=== PATIENT | male | born 1955 | race Caucasian/White ===

== ENCOUNTER 2020-06-15 08:50 | Outpatient (CLI) | payer MEDICARE, BC ==
--- NOTE | 2020-06-15 12:02 | CT ---
CT CHEST WITHOUT CONTRAST: Date: 06/15/2020 PROVIDED CLINICAL HISTORY: Personal history of nicotine dependence. COMPARISON: CT dated 06/22/2014. FINDINGS: There is a right hilar mass measuring at least 4.6 x 5.1 cm in greatest transverse dimensions, and at least 5.0 cm in craniocaudal dimension. This is associated with occlusion of the right main bronchus, bronchus intermedius, right upper lobe bronchus, right middle lobe bronchus, and right lower lobe bronchus. There is consolidation involving the right middle lobe. There is consolidation involving the posterio r aspect of the superior segment of the right lower lobe. There is consolidation involving the basila r aspects of the right lower lobe. There are innumerable subcentimeter nodules throughout the right m iddle and right lower lobes. Multifocal nodules are also seen within the caudal aspects of the right upper lobe posteriorly. The left lung appears free of suspicious opacity. Assessment for thoracic lymph node enlargement is limited due to lack of IV contrast material. Vascular calcification including coronary calcium is demonstrated. There is no pleural fluid, pleural thickening, or pneumothorax apparent. The visualized portions of the upper abdomen appear unremarkable. The osseous structures demonstrate no concerning lytic or blastic lesions. IMPRESSION: 1. Lung-RADS Category 4X - Very suspicious. Findings compatible with right hilar malignancy with ass ociated occlusion of the right-sided airway and postobstructive pneumonitis and/or right pulmonary me tastatic disease. CT chest with IV contrast may be useful for further evaluation as indicated. 2. Lung-RADS Category S - Vascular calcification including coronary calcium. CODE T. POS: JAZIEL
== END 2020-06-15 08:51 | disposition home or self-care (01) ==
LOC: BICCT 08:50
PROVIDERS: ATTEND Family Medicine Sports Medicine
DX: Z12.2 Encounter for screening for malignant neoplasm of respiratory organs (principal); F17.210 Nicotine dependence, cigarettes, uncomplicated; I25.10 Atherosclerotic heart disease of native coronary artery without angina pectoris
CPT/HCPCS: G0297

== ENCOUNTER 2020-06-21 11:03 | Outpatient (CLI) | payer MEDICARE, BC ==
[2020-06-22 12:58] LABS: SARS-CoV-2 MS2 Positive; SARS-CoV-2 N Gene Negative; SARS-CoV-2 S Gene Negative; SARS-CoV-2 by NAA Not Detected (NotDetected); SARS-CoV-2 orf1ab Negative
== END 2020-06-21 11:04 | disposition home or self-care (01) ==
LOC: LABBT 11:03
PROVIDERS: ATTEND Internal Medicine Critical Care Medicine
DX: Z20.828 Contact with and (suspected) exposure to other viral communicable diseases (principal)
CPT/HCPCS: 87635; U0003

== ENCOUNTER 2020-06-24 07:54 | Day surgery (SDC) | payer MEDICARE, BC ==
--- NOTE | 2020-06-23 09:43 | HP ---
HISTORY OF PRESENT ILLNESS: Mr. Ross is a gentleman, who is referred for an abnormal chest x-ray and chest CT. He developed a cough this summer. Chest x-ray was nonrevealing. His cough did not improve, so a CT scan was done which showed a right hilar mass. Risks of bleeding, infection, lung collapse, and were explained. Patient is willing to proceed. PAST MEDICAL HISTORY: Remarkable for 1. Peripheral vascular disease. 2. Hypertension. 3. History of a femoral artery stent. 4. Ongoing tobacco use. 5. History of a headache, worked up with an MRI that showed multiple nonspecific abnormalities. FAMILY HISTORY: Negative for lung disease at an early age, positive for diabetes, hypertension, heart disease. REVIEW OF SYSTEMS: Otherwise negative. PHYSICAL EXAMINATION: GENERAL: A very pleasant gentleman, in no distress. VITAL SIGNS: Pulse is 80, respiratory rate is 18, oximetry is 97. HEENT: Pupils are equal. Sclerae anicteric. Extraocular movements are full. I did not palpate any cervical or supraclavicular lymph nodes. I could not palpate any axillary lymph nodes. LUNGS: Remarkable for decreased breath sounds at his right base. HEART: Regular rhythm. S1, S2 are normal. ABDOMEN: Soft and nontender. EXTREMITIES: Without clubbing, cyanosis, or edema. IMAGING: CT shows a 5 x 5 right hilar mass. IMPRESSION: Bronchogenic carcinoma. DISCUSSION: Given the rapid appearance of this mass, this is behaving like small-cell lung cancer. Hopefully, he has endobronchial disease that we can biopsy. He is scheduled for Saturday morning at 10 a.m. for bronchoscopy with sedation. Job ID: [id number]
[2020-06-23 10:53] VITALS: BMI 22.4
[2020-06-24] MEDS ORDERED: Fentanyl 100 MCG/2 ML VIAL ONE ×3 (09:55→12:37)
[2020-06-24] MEDS ORDERED: PROPOFOL 200 MG/20 ML VIAL ONE (10:04)
[2020-06-24] MEDS ORDERED: Ondansetron PF 4 MG/2 ML Vial ONE (10:04)
[2020-06-24] MEDS ORDERED: Rocuronium Bromide 10 MG/ML (10ML VIAL) ONE (10:04)
[2020-06-24] MEDS ORDERED: Succinylcholine 200 MG/10 ml SYRINGE FS ONE (10:04)
[2020-06-24] MEDS ORDERED: Dexamethasone 20 MG/5 ML VIAL ONE (10:04)
[2020-06-24] MEDS ORDERED: Glycopyrrolate 0.2 MG/ML 5 ML SYRINGE ONE (10:04)
[2020-06-24] MEDS ORDERED: Lidocaine 1% PF 5 ML VIAL ONE (10:04)
[2020-06-24] MEDS ORDERED: EPINEPHrine 1 MG/10 ML Abboject SYRINGE ONE (10:04)
[2020-06-24] MEDS ORDERED: Morphine 4 MG/ML VIAL ONE (12:18)
[2020-06-24] MEDS ORDERED: Morphine 2 MG/ML VIAL ONE (12:26)
--- NOTE | 2020-06-26 19:37 | OP ---
DATE OF PROCEDURE: 06/24/2020 PROCEDURE: Bronchoscopy. DESCRIPTION OF PROCEDURE: Mr. Ross was sedated by Anesthesia, which is greatly appreciated. Once he was asleep, bronchoscope was introduced via the endotracheal tube, passed down to his main roberto, which is slightly widened. At the proximal right mainstem bronchus, friable mass was encountered that was bleeding. This was treated topically with epinephrine and the bleeding stopped. Multiple brushings were obtained. The brush was cut off and placed in CytoFix and sent to Pathology. Multiple biopsies were obtained. These were also placed in cytology fixative and sent to Pathology. Multiple washings were obtained. Bleeding had stopped at the completion of the procedure. Scope was withdrawn. He was taken to Recovery and extubated. I met with him afterwards and talked to his . I have explained to him that it is extremely likely that this is an aggressive malignancy, most likely small cell lung cancer. I suppose this could be an atypical presentation for a very aggressive lymphoma. I have never seen squamous cell carcinoma progress this rapidly before, and it is a proximal tumor in a smoker. Hopefully, we will have results of the biopsies by Saturday and we can begin treatment. With regard to his persistent headache, he was given Tylenol No. 3, 100 tablets, take one 2 to 3 times a day and 2 at bedtime. He has been taking a lot of Tylenol and ibuprofen just to get reasonable control of his headaches. He had multiple white matter lesions on his MRI and the interpretation was that it was not typical for malignant process. I plan to have a different radiologist review the MRI in the context of him having a very large aggressive lung mass. It would seem more likely that this would be metastatic lung cancer creating his headache. Job ID: [id number]
--- NOTE | 2020-06-26 20:55 | EKG ---
Test Reason : PREOP Blood Pressure : / mmHG Vent. Rate : 087 BPM Atrial Rate : 087 BPM P-R Int : 124 ms QRS Dur : 092 ms QT Int : 350 ms P-R-T Axes : 021 036 037 degrees QTc Int : 421 ms Normal sinus rhythm Normal ECG No previous ECGs available Confirmed by Richie MISTRY ([id number]) on 06/26/2020 8:55:05 PM Referred By: MARIE Confirmed By:Richie MISTRY
== END 2020-06-24 14:10 | disposition home or self-care (01) ==
LOC: SDC 07:54
PROVIDERS: ATTEND Internal Medicine Critical Care Medicine
PROC: 0BB38ZX Excision of Right Main Bronchus, Via Natural or Artificial Opening Endoscopic, Diagnostic (ICD-10-PCS; principal; 2020-06-24)
PROC: 0BD38ZX Extraction of Right Main Bronchus, Via Natural or Artificial Opening Endoscopic, Diagnostic (ICD-10-PCS; 2020-06-24)
DX: C34.91 Malignant neoplasm of unspecified part of right bronchus or lung (principal); R51.9 Headache, unspecified; I73.9 Peripheral vascular disease, unspecified; I10 Essential (primary) hypertension; E78.5 Hyperlipidemia, unspecified; Z87.891 Personal history of nicotine dependence; Z79.899 Other long term (current) drug therapy; Z95.820 Peripheral vascular angioplasty status with implants and grafts
CPT/HCPCS: 31623; 31625; 88112; 88305; 88313; 88341; 88342; 93005; J2270; 93010; J0171; J1100; J2405; J2704; J3010

== ENCOUNTER 2020-07-05 11:17 | Outpatient (CLI) | payer MEDICARE, BC ==
--- NOTE | 2020-07-05 13:18 | PET ---
PET W CT Skull to Mid Thigh History: Squamous cell carcinoma of lung Comparison: Chest radiograph January 18, 2020. CT chest June 15, 2020 Findings: PET CT performed after the intravenous administration 10.9 mCi F-18 FDG. Large right intrabronchial mass involves the right mainstem bronchus and extends into the right lower lobe, right middle lobe and portions of the right upper lobe bronchi. The hypermetabolic portion of this mass measures up to 6 cm axial image 113 with SUV max 27.0. High-grade peripheral right lower lobe postobstructive pneumonitis is non-FDG avid. No FDG avid mediastinal adenopathy. No supraclavicular adenopathy. No axillary adenopathy. No FDG avid adenopathy below the diaphragm. Adrenal glands are not involved. Bilateral symmetric intracranial uptake. No cervical adenopathy. No FDG avid pulmonary nodule in the left lung. Volume loss of the right lung with rightward mediastin al shift. Mild renal vascular calcifications. Mild aortic calcifications. Mild diverticular disease sigmoid colon without active current inflammation. The appendix is visualiz ed and is normal. The liver, spleen, and mesentery are not involved. No osseous metastatic disease. Impression: Markedly hypermetabolic right endobronchial mass extending predominantly along the right middle lobe and lower lobe with non-FDG avid postobstructive pneumonitis. No mediastinal, supraclavicular, or contralateral hilar adenopathy. No distant metastatic disease.
== END 2020-07-05 11:18 | disposition home or self-care (01) ==
LOC: PET 11:17
PROVIDERS: ATTEND Internal Medicine Hematology & Oncology
DX: C34.90 Malignant neoplasm of unspecified part of unspecified bronchus or lung (principal); R91.8 Other nonspecific abnormal finding of lung field
CPT/HCPCS: 78815; A9552

== ENCOUNTER 2020-07-29 13:49 | Outpatient (CLI) | payer MEDICARE, BC | END 2020-07-29 13:50 | disposition home or self-care (01) | LOC: CTENTCT 13:49 | PROVIDERS: ATTEND Student in an Organized Health Care Education/Training Program | DX: R51.9 Headache, unspecified (principal) | CPT/HCPCS: 70486 ==

== ENCOUNTER 2020-08-05 08:33 | Outpatient (CLI) | payer MEDICARE ==
[2020-08-05 15:35] LABS: Hemoglobin 13.6 g/dL (14.0-18.0); Mean Corpuscular HGB CONC 34.7 G/DL (32.0-36.0); Mean Corpuscular Hemoglobin 29.9 PG (27.0-33.0); Mean Corpuscular Volume 86.2 fl (80.0-100.0); Mean Platelet Volume 11.4 fl (7.4-10.4); Platelet Count 231 10x3/uL (130-400); RBC Distribution Width 12.3 % (11.5-14.5); Red Blood Cell (RBC) Count 4.55 10x6/uL (4.40-5.80); White Blood Cell (WBC) Count 41.9 10x3/uL (4.5-11.0)
[2020-08-05 16:29] LABS: MDiff Complete? YES
[2020-08-05 16:35] LABS: Band 13 % (5-11); Lymphocytes 1 % (21-51); Metamyelocyte 3 % (0-0); Monocytes 2 % (0-10); Neutrophil 81 % (42-75)
[2020-08-05 16:36] LABS: Large Platelets SLIGHT; Reflex for Review?? YES
[2020-08-05 16:37] LABS: Platelet Morphology Comment Appears Adequate
[2020-08-05 16:38] LABS: RBC Morphology Normal
[2020-08-06 02:09] LABS: SARS-CoV-2 MS2 Positive; SARS-CoV-2 N Gene Negative; SARS-CoV-2 S Gene Negative; SARS-CoV-2 by NAA Not Detected (NotDetected); SARS-CoV-2 orf1ab Negative
== END 2020-08-05 08:34 | disposition home or self-care (01) ==
LOC: LABBT 08:33
PROVIDERS: ATTEND Specialist
DX: Z01.818 Encounter for other preprocedural examination (principal); Z20.828 Contact with and (suspected) exposure to other viral communicable diseases; C34.00 Malignant neoplasm of unspecified main bronchus
CPT/HCPCS: 85025; U0003; 80053; 82248; 83615; 84100; 84550; 85060; 87635; 93005; 93010; 99202; G0463

== ENCOUNTER 2020-08-10 06:03 | Day surgery (SDC) | payer BC, MEDICARE ==
--- NOTE | 2020-08-08 08:18 | HP ---
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 Benitez, undergoing chemotherapy, considering possible future surgical resection. He had a CAT scan demonstrating right hilar mass 4.6 x 5.1 cm, occluded right mainstem bronchus. I have been asked to see him regarding placement of MediPort. We will plan low-profile MediPort outpatient, intravenous sedation and local anesthesia. Recent laboratories unremarkable, do not need to repeat them. MEDICATIONS: 1. Atorvastatin. 2. Lisinopril. 3. Dexamethasone. 4. .. 5. Compazine p.r.n. PAST MEDICAL HISTORY: Hypertension, hyperlipidemia, right lung cancer as noted above. SOCIAL HISTORY: Tobacco, one pack per day. Alcohol, none. PAST SURGICAL HISTORY: Noncontributory REVIEW OF SYSTEMS: Ten-point noncontributory. PHYSICAL EXAMINATION: VITAL SIGNS: 166 pounds, blood pressure 118/62, heart rate 111, and temperature 97.1 degrees. LUNGS: Clear to auscultation. CARDIAC: Regular rate and rhythm without murmur or gallop. No wheezing. ABDOMEN: Nontender. No masses. EXTREMITIES: Unremarkable. ASSESSMENT AND PLAN: Right lung cancer. PLAN: MediPort placement outpatient, intravenous sedation, local anesthesia, low-profile. Job ID: [id number]
[2020-08-09 11:01] VITALS: BMI 20.9
[2020-08-10] MEDS ORDERED: Ketorolac Tromethamine 30 MG/ML VIAL ONE (06:15)
[2020-08-10] MEDS ORDERED: Acetaminophen 500 MG TAB ONE (06:15)
[2020-08-10] MEDS ORDERED: Midazolam HCl 2 mg/2 ml Vial ONE (06:36)
[2020-08-10] MEDS ORDERED: Fentanyl 100 MCG/2 ML VIAL ONE (06:36)
[2020-08-10] MEDS ORDERED: Lidocaine 1% w/Epinephrine 1:100K 20 ML VIAL ONE (06:38)
[2020-08-10] MEDS ORDERED: Bupivacaine PF 0.5% 30 ML VIAL ONE (06:38)
[2020-08-10] MEDS ORDERED: Propofol 500 MG/50 ML VIAL ONE ×2 (06:45→06:46)
--- NOTE | 2020-08-10 08:34 | OP ---
DATE OF PROCEDURE: 08/10/2020 PREOPERATIVE DIAGNOSES: Right lung hilar and [id number]-evdy squamous cell carcinoma, in need of antineoplastic chemotherapy access. POSTOPERATIVE DIAGNOSES: Right lung hilar and [id number] squamous cell carcinoma, in need of antineoplastic chemotherapy access. PROCEDURE PERFORMED: Right subclavian vein low-profile MediPort, PowerPort. ANESTHESIA: Intravenous sedation, local 0.5% Marcaine 30 mL mixed with 1% Xylocaine with epinephrine 20 mL. Fluoroscopy used. DESCRIPTION OF PROCEDURE: The patient was taken to the operating room, where under intravenous sedation, neck and chest clipped of hair, prepared with ChloraPrep and draped in routine fashion. Local anesthetic mixture infiltrated into the skin and subcutaneous tissue about the operative site. Infraclavicular approach used, and trocar catheter introduced into the subclavian vein, threading the J-wire, removing the trocar catheter enlarging the skin exit site sharply, creating a subcutaneous pocket, noting good hemostasis obtained with cautery to accommodate the port. Dilator and Peel-Away sheath placed over the J-wire into superior vena cava. Dilator and J-wire were removed. Catheter was placed with Peel-Away sheath. Fluoroscopically, the tip placed in optimal position in superior vena cava, catheter tailored to length, connected to the MediPort, placed in subcutaneous pocket and secured with 2 interrupted sutures of 3-0 Prolene. Subcutaneous tissue was approximated with 3-0 Monocryl, skin with subdermal 4-0 Monocryl, and Boswell glue applied. MediPort accessed with Canela needle, aspirated blood, flushed with heparinized saline solution. Final fluoroscopic images revealed good MediPort and catheter placement. Job ID: [id number]
--- NOTE | 2020-08-10 08:38 | RAD ---
Exam: Chest one view HISTORY:"Mediport catheter placement. Evaluate for pneumothorax. Comparison: 11/16/2008 FINDINGS: Lines and tubes: Interval placement of right-sided Mediport catheter. Distal tip projects over the ca voatrial junction. Cardiac silhouette: Normal Aorta: Unremarkable Pulmonary vessels: Normal Costophrenic angles: Clear LUNGS: No masses or consolidation. Pneumothorax: None Osseous abnormalities: None IMPRESSION: 1. Right-sided Mediport catheter. 2. No pneumothorax.
== END 2020-08-10 09:15 | disposition home or self-care (01) ==
LOC: SDC 06:03
PROVIDERS: ATTEND Specialist
PROC: 02HV33Z Insertion of Infusion Device into Superior Vena Cava, Percutaneous Approach (ICD-10-PCS; principal; 2020-08-10)
DX: C34.01 Malignant neoplasm of right main bronchus (principal); I10 Essential (primary) hypertension; E78.5 Hyperlipidemia, unspecified; F17.210 Nicotine dependence, cigarettes, uncomplicated; Z79.899 Other long term (current) drug therapy
CPT/HCPCS: 36561; 71045; C1788; J0690; J1642; J1885; J2250; J2704; J3010; S0020

== ENCOUNTER 2020-10-26 13:41 | Outpatient (CLI) | payer MEDICARE, BC ==
[~2020-10-26 13:41] MED LIST: Iopamidol-370 76% 500 ML 1 ML ONE
== END 2020-10-26 13:42 | disposition home or self-care (01) ==
LOC: BICCT 13:41
DX: Z01.818 Encounter for other preprocedural examination (principal); C34.91 Malignant neoplasm of unspecified part of right bronchus or lung; J98.4 Other disorders of lung; R91.8 Other nonspecific abnormal finding of lung field
CPT/HCPCS: 71260; 82565; Q9967